=== PATIENT | male | born 1955 | race African-American/Black ===

== ENCOUNTER 2016-04-27 16:42 | Emergency (ER) | payer OTHER ==
[~2016-04-27] VITALS: Ht 185.4 cm; Wt 117.9 kg
[2016-04-27 16:44] VITALS: BP 117/88
--- NOTE | 2016-04-27 17:06 | NUR ---
PT TAKEN TO XRAY VIA WHEELCHAIR AT THIS TIME.
--- NOTE | 2016-04-27 17:49 | NUR ---
PT WHEELCHAIR ASSISTED TO BED 7 AT THIS TIME.
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
--- NOTE | 2016-04-27 18:21 | NUR ---
Kang AT BEDSIDE.
[2016-04-27] MEDS ORDERED: KETOROLAC 60 MG/2 ML VIAL IM ONE (19:05)
[2016-04-27] MEDS ORDERED: DIAZEPAM PFS 10 MG/2 ML SYR IM ONE (19:05)
--- NOTE | 2016-04-27 19:15 | NUR ---
Pt report given to CHIQUITA BERG. Transfer of care at this time.
--- NOTE | 2016-04-27 19:16 | NUR ---
GOT REPORT FROM CHIQUITA COSTELLO. PT. RESTING IN BED, NO S/SX OF DISTRESS.
--- NOTE | 2016-04-27 19:55 | NUR ---
Patient discharged with v/s stable. Written and verbal after care instructions given and explained. Patient alert, oriented and verbalized understanding of instructions. Ambulatory with steady gait. All questions addressed prior to discharge. ID band removed. Patient advised to follow up with PMD. Rx of NORCO 5/325MG, VALIUM 5 MG, MOTRIN 800 MG given. Patient educated on indication of medication including possible reaction and side effects. Opportunity to ask questions provided and answered.
[2016-04-27 20:00] VITALS: BP 116/75
== END 2016-04-27 19:55 | disposition home or self-care (01) ==
LOC: MED 16:42
DX: M54.5 Low back pain (principal); M54.2 Cervicalgia; E78.5 Hyperlipidemia, unspecified; Z98.890 Other specified postprocedural states
CPT/HCPCS: 72050; 72110; 96372; 99284; J1885; J3360